=== PATIENT | female | born 1955 | race Caucasian/White ===

== ENCOUNTER 2017-08-19 15:05 | Emergency (ER) | payer OTHER ==
[~2017-08-19] VITALS: Ht 161.3 cm; Wt 72.7 kg
[~2017-08-19 15:05] MED LIST: ONDA4TAB9 PO
[2017-08-19 15:10] VITALS: BP 135/77; PULSE 79; RESP 16; O2SAT 99
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
[2017-08-19 18:36] VITALS: BP 126/73; PULSE 70; O2SAT 100
== END 2017-08-19 18:37 | disposition home or self-care (01) ==
LOC: SED 15:05
DX: S16.1XXA Strain of muscle, fascia and tendon at neck level, initial encounter (principal); V53.6XXA Passenger in pick-up truck or van injured in collision with car, pick-up truck or van in traffic accident, initial encounter; Y93.89 Activity, other specified; Y92.410 Unspecified street and highway as the place of occurrence of the external cause; Y99.8 Other external cause status; Z90.710 Acquired absence of both cervix and uterus